=== PATIENT | female | born 1975 ===

== ENCOUNTER 2021-02-22 08:45 | Inpatient (IN) | payer OTHER ==
[~2021-02-22] VITALS: Ht 160 cm; Wt 95.3 kg
[2021-02-22] MEDS ORDERED: DAILY VALUE1 EACH PO (10:56)
[2021-03-02] MEDS ORDERED: IBUPROFEN800 MG PO (06:53)
[2021-03-02] MEDS ORDERED: SIMETHICONE125 M1 PO (06:53)
[2021-03-02] MEDS ORDERED: NEURONTIN600 MG PO (06:53)
[2021-03-02] MEDS ORDERED: POLY119PG PO (06:53)
== END 2021-03-02 11:58 | disposition home or self-care (01) | DRG 743 ==
LOC: OB/GYN 02-28 06:20 → O/R 02-28 06:20 → OB/GYN 02-28 10:43
PROVIDERS: ADMIT Obstetrics & Gynecology; ATTEND Obstetrics & Gynecology
PROC: 0UB70ZZ Excision of Bilateral Fallopian Tubes, Open Approach (ICD-10-PCS; 2021-02-28)
PROC: 0UT90ZZ Resection of Uterus, Open Approach (ICD-10-PCS; principal; 2021-02-28 07:00)
DX: D25.1 Intramural leiomyoma of uterus (principal); D25.2 Subserosal leiomyoma of uterus; N72 Inflammatory disease of cervix uteri; N93.9 Abnormal uterine and vaginal bleeding, unspecified